=== PATIENT | male | born 1940 | race Caucasian/White ===

== ENCOUNTER → 2017-11-28 | Outpatient (CLI) | payer OTHER ==
[~2017-11-28] MED LIST: DOXA-10 PO; FINA5TAB PO; FLUTICASONE INTNAS; GABA-113 PO; HYDR12.55 PO; IMD/2 PO; LEFL20TA PO; MAGN400T6 PO; PRD/1 PO; ROPI1TAB PO; RXC5 PO; TRAV0.00 OP; [UNRECOGNIZED DRUG - OTHER] OPB
== END | disposition home or self-care (01) ==
LOC: C.LABMFLN 10:15
PROVIDERS: ATTEND Family Medicine
DX: N45.1 Epididymitis (principal)